=== PATIENT | male | born 1970 | race Caucasian/White ===

== ENCOUNTER 2023-10-06 05:53 | Emergency (ER) | payer OTHER, SELFPAY ==
[2023-10-06 05:54] VITALS: BP 126/85; PULSE 90; RESP 16; TEMP 36.2; O2SAT 98; BMI 35.2
--- NOTE | 2023-10-06 06:22 | CT_ITS ---
STUDY: CT ABDOMEN AND PELVIS WITHOUT CONTRAST REASON FOR EXAM: Female, 53 years old. Flank pain RADIATION DOSAGE (If Supplied By Facility): CTDIvol = ( 21 ) mGy, DLP = ( 1177 ) mGycm TECHNIQUE: Transaxial images were obtained from the dome of the diaphragm to the symphysis pubis without oral contrast, and without intravenous contrast. Sagittal and coronal images were reconstructed. Individualized dose optimization techniques were used for this CT. COMPARISON: No relevant prior comparison study available FINDINGS: Evaluation of the abdominal viscera is limited in the absence of intravenous contrast. LOWER THORAX: The visualized lung bases are clear. The visualized portions of the heart and pericardium are within normal limits. GALLBLADDER / BILE DUCTS: There are no calcified gallstones present. The common bile duct is normal in caliber. There are no calcified ductal stones. LIVER: The liver is enlarged and low in density, consistent with fatty infiltration. SPLEEN: The spleen is enlarged, measuring 15.6 cm in maximal dimension. PANCREAS: The pancreas demonstrates an unremarkable unenhanced appearance. ADRENAL GLANDS: The adrenal glands are within normal limits. KIDNEYS / BLADDER: There are bilateral subcentimeter nonobstructing renal collecting system stones, measuring up to 6 mm. There are no ureteral stones. There is no hydronephrosis. There are no focal renal lesions identified on this noncontrast exam. The urinary bladder is partially distended and appears grossly unremarkable. STOMACH / BOWEL: Normal visualized stomach. There is no bowel obstruction or inflammation. The appendix is visualized and appears normal. PERITONEUM / RETROPERITONEUM: There is no abdominal or pelvic free air, free fluid or fluid collection. There is no abnormal soft tissue mass identified. There is no abdominal or pelvic lymphadenopathy. VESSELS: The aorta is normal in caliber. The IVC is unremarkable. BONES: The patient is status post posterior fusion of L3/L4/L5. There are no destructive osseous lesions. SOFT TISSUES: The visualized soft tissues are within normal limits. CT/Abdomen/Pelvis without Cont IMPRESSION: Bilateral subcentimeter nonobstructing renal collecting system stones. No ureteral stones. No hydronephrosis. No bowel obstruction or inflammation. Normal appendix. Hepatosplenomegaly with fatty infiltration of the liver. Electronically Signed: Mj Mendes MD at 7:58 EDT ,
--- NOTE | 2023-10-06 06:25 | EDS_ITS ---
HPI History of Present Illness Chief Complaint: Back Informant: patient Onset/Context/Timing Onset: Yesterday Context: Gradual Onset Timing: Continuous Quality: Sharp Location: Lumbar Current Severity: Moderate Maximum Severity: Moderate Worsened by: improves with Movement Relieved by: Nothing Associated Symptoms Associated Symptoms: Negative for Numbness, Unable to Ambulate or Fecal Incontinence Narrative Narrative: 53-year-old male history of prior kidney stones and prior back fusion. He has been on tramadol and gabapentin for that before. He also has a history of diabetes. States he has had bilateral lower back pain since around 8 PM Sunday night. Family feels like it may be a kidney stone versus musculoskeletal back pain. He denies any hematuria or dysuria. Denies any fever. Denies any fall or trauma. He does have associated nausea but no vomiting or diarrhea. Prior similar symptoms: No Recent Illness/Hospitalization: No PFSH PFSH Medical History ACL tear Depression Anxiety PTSD (post-traumatic stress disorder) Allergy/AdvReac Type Severity Reaction Status Date / Time morphine AdvReac HALLUCINATI Verified 10/06/23 05:55 ONS niacin AdvReac Other Verified 10/06/23 05:55 Social History Smoking Status: Current every day smoker tobacco type: cigarettes ROS ROS ED ROS Narrative Bilateral paralumbar back pain. No dysuria or hematuria. No fever. Review of Systems ROS Unobtainable: Denies due to encephalopathy Constitutional Constitutional ED: Denies chills Eyes Eyes: Denies blurry vision ENT ENT ED: Denies ear pain Cardiovascular Cardiovascular: Denies chest pain Respiratory/Chest Respiratory/Chest: Denies dyspnea Gastrointestinal Gastrointestinal: Denies abdominal pain, constipation, diarrhea, melena, nausea or vomiting Genitourinary Genitourinary ED: Denies dysuria or hematuria Musculoskeletal Musculoskeletal: Denies arthralgias Integumentary Denies abscess, Abrasions or rash Neurologic Neurologic: Denies headache(s) Psychiatric Psychiatric: Denies anxiety Endocrine Endocrinology: Denies cold intolerance Hematologic/Lymphatic Hematologic/Lymphatic: Denies easy bleeding Allergic/Immunologic Allergic/Immunologic ED: Denies mouth swelling or tongue swelling EXAM Physical Exam Narrative Exam Narrative: 53-year-old male lying in the position complaining lower back pain. Vital signs stable afebrile. H EENT exam unremarkable. Neck nontender. Lungs clear. Heart regular rhythm no murmur. Abdomen soft, nontender, nondistended normal bowel sounds without peritoneal signs. No pulsatile mass. No reproducible pain. Back is reproducible upper. Lumbar soft tissue tenderness. Well-healed prior scar. No redness or warmth. No discharge or drainage. No signs of trauma. Both upper and lower extremities have 5 of 5 motor strength and sensation. No cauda equina. No saddle anesthesia. No radiculopathy. Dony normal medial thigh sensation. Neurologically is awake and alert no focal motor or sensory deficits. Const Vital Signs: 10/06/23 05:54 Temperature 97.1 F L Temperature Source Oral Pulse Rate 90 Respiratory Rate 16 Blood Pressure 126/85 H Blood Pressure Mean 98 Pulse Ox 98 Oxygen Delivery Method Room Air Positive well nourished and well developed; Negative for cachectic, contractures or unkempt General Appearance ED: well developed; Negative for unkempt, cachectic, contractures or pallor Nutritional Appearance: Negative for cachectic HEENT Reports moist mucous membranes Negative for trauma Eyes PERRL Neck no lymphadenopathy, supple and no JVD General: Negative for tenderness Thyroid: Negative for other Resp normal respiratory effort and clear to auscultation bilaterally Effort and Inspection: Negative for pain with movement Auscultation: Negative for rales, rhonchi, wheezes or diminished lung sounds Cardio regular rate, regular rhythm, S1 normal heart sound, S2 normal heart sound and no murmurs Palpation: Negative for palpable S3 Rate: Negative for bradycardia or tachycardic Rhythm: Negative for abnormal rhythm Bruits: Negative for other GI normal to inspection, nondistended, normoactive bowel sounds, soft to palpation, non-tender, non-distended and no masses Inspection: Negative for abdominal distention Palpation: tender and guarding Bladder / Kidney Exam: No other Back/Spine normal to inspection and no thoracic nor lumbar tenderness General Back: Negative for CVA tenderness or scar(s) Cervical Spine: cervical spine tenderness Thoracic Spine / Upper Back: Negative for paraspinal muscle tenderness Extremity normal to inspection and no clubbing, cyanosis or edema General Extremety ED: Negative for edema or tenderness General Extremity: Negative for edema Neuro oriented x3 and no sensory deficits noted Sensorium / Orientation: Negative for alert, confused or lethargic Motor Exam: Negative for strength 5/5 throughout Psych mental status grossly normal Appearance: Negative for unkempt Attitude: No agitated Mood & Affect: Negative for depressed, sad or tearful Skin no rashes or lesions noted and no wounds General Skin Exam: Negative for jaundice or pallor Lesions: No lesion noted Rashes: No rashes noted Trauma: Negative for abrasion or puncture Wounds: Negative for wounds noted Image ED - Body Diagram Man: 2 1. 53-year-old male with lower back pain seems musculoskeletal in etiology. CAT scan will be obtained because he thinks the kidney stone clinically he gets more musculoskeletal back pain. To be treated with Toradol, Dilaudid and Zofran. UA also be obtained. Discharge Plan Triage Chief Complaint: Back ED Provider: Isma Haas Dx/Rx/DC Orders Primary Care Provider: Kendra Suarez Referrals: Kendra Suarez MD [Primary Care Provider] - Print Language: Indonesian
[2023-10-06] MEDS: HYDROmorphone 1 MG/ML Syringe IV (06:29)
[2023-10-06] MEDS: Ondansetron 4 MG/2 ML Vial IV (06:29)
[2023-10-06] MEDS: Ketorolac 15 MG/ML Vial IV (06:29)
[2023-10-06 06:57] VITALS: BP 141/90; PULSE 93; RESP 16; O2SAT 93
[2023-10-06 08:03] LABS: Color, Urine Yellow (Yellow); Glucose, Dipstick 1000 mg/dl (Normal); Ketone-Dipstick Negative (Negative); Leukocyte Esterase-Dipstick 25 /ul (Negative); Nitrite-Dipstick Negative (Negative); Occult Blood-Urine 10 /ul (Negative); Protein-Dipstick 15 mg/dl (Negative); Urine Bilirubin Dipstick Negative (Negative); Urine Clarity Clear (Clear); Urine Urobilinogen Normal (Normal)
[2023-10-06 08:41] LABS: Red Blood Cells-Urine 0-5 SEEN /hpf (0-5); White Blood Cells 0-5 SEEN /hpf (0-5)
[2023-10-06 08:42] LABS: Bacteria 1+ /hpf (None Seen); Mucous, Urine 1+ /hpf (<or=2+); Squamous Epithelial Cells - UA 5-10 SEEN /hpf (0-5)
[2023-10-06 09:08] VITALS: BP 124/86; PULSE 83; RESP 16; TEMP 36.6; O2SAT 98
== END 2023-10-06 09:16 | disposition home or self-care (01) ==
PROVIDERS: Emergency Provider Emergency Medicine; Visit Provider Emergency Medicine
DX: M54.50 Low back pain, unspecified (principal); E11.9 Type 2 diabetes mellitus without complications; R11.0 Nausea; F17.210 Nicotine dependence, cigarettes, uncomplicated; Z87.442 Personal history of urinary calculi; Z98.1 Arthrodesis status; N20.0 Calculus of kidney
CPT/HCPCS: 74176; 81001; 96374; 96375; 99283; A4216; J2405